=== PATIENT | female | born 1995 | race American Indian/Alaskan Native ===

== ENCOUNTER 2020-11-18 09:33 | Emergency (ER) | payer MEDICAID ==
[2020-11-18 09:52] VITALS: BP 149/80
--- NOTE | 2020-11-18 10:13 | Emergency Department Report ---
- General Chief complaint: Skin/Abscess/Foreign Body Stated complaint: FB STUCK IN RT EAR Time Seen by Provider: 11/18/20 10:06 Source: patient Mode of arrival: Ambulatory Limitations: No Limitations - History of Present Illness Initial comments: pt is a 25 yo female who presents to the ED with c/o the cotton tip from the qtip being present in the right ear canal since yesterday. she states she was using a qtip and when she took it out of the ear she did not see the end of the cotton tip. she states that she is just worried it is still inside the canal. she denies any significant ear pain, drainage, fever, hearing changes. no pmhx. no allergies to meds. LNMP february, pt is currently and due in november. Abscess Boil HPI - HPI Chief Complaint: Skin/Abscess/Foreign Body Stated Complaint: FB STUCK IN RT EAR Time Seen by Provider: 11/18/20 10:06 ED Review of Systems ROS: Stated complaint: FB STUCK IN RT EAR Other details as noted in HPI Comment: All other systems reviewed and negative ED Past Medical Hx - Past Medical History Previous Medical History?: No - Surgical History Past Surgical History?: No - Social History Smoking Status: Never Smoker Substance Use Type: None ED Physical Exam - General Limitations: No Limitations General appearance: alert, in no apparent distress - Head Head exam: Present: atraumatic, normocephalic - Eye Eye exam: Present: normal appearance - ENT ENT exam: Present: mucous membranes moist, TM's normal bilaterally, normal external ear exam - Respiratory Respiratory exam: Absent: respiratory distress, accessory muscle use - Neurological Exam Neurological exam: Present: alert, oriented X3 - Psychiatric Psychiatric exam: Present: normal affect, normal mood - Skin Skin exam: Present: warm, dry, intact ED Course Vital Signs 11/18/20 09:39 Temperature 97.8 F Pulse Rate 96 H Respiratory 18 Rate Blood Pressure 149/80 O2 Sat by Pulse 95 Oximetry ED Medical Decision Making - Medical Decision Making pt is a 25 yo female who presents to the ED with c/o the cotton tip from the qtip being present in the right ear canal since yesterday. she states she was using a qtip and when she took it out of the ear she did not see the end of the cotton tip. she states that she is just worried it is still inside the canal. she denies any significant ear pain, drainage, fever, hearing changes. no pmhx. no allergies to meds. LNMP february, pt is currently and due in november. vss. on exam: TMs and canals are normal bilaterally, no foreign body, no trauma, no bleeding, no drainage, no cerumen impaction. no foreign body on exam. advised pt please follow up with your primary care doctor or mash tub cooker. do not use qtips in the ears. if you need to clean the ears use an ear cleaning kit over the counter such as debrox. return to the emergency room for any new or worsening symptoms. Critical care attestation.: If time is entered above; I have spent that time in minutes in the direct care of this critically ill patient, excluding procedure time. ED Disposition Clinical Impression: Ear ache Disposition: - TO HOME OR SELFCARE Is pt being admited?: No Does the pt Need Aspirin: No Condition: Stable Additional Instructions: please follow up with your primary care doctor or mash tub cooker. do not use qtips in the ears. if you need to clean the ears use an ear cleaning kit over the counter such as debrox. return to the emergency room for any new or worsening symptoms. Referrals: your, primary care doctor [Other] - 2-3 Days Time of Disposition: 10:12 Print Language: BHUTANESE
== END 2020-11-18 10:35 | disposition home or self-care (01) ==
LOC: ED 09:33
DX: H92.01 Otalgia, right ear (principal)
CPT/HCPCS: 99281

== ENCOUNTER 2021-05-11 06:54 | Emergency (ER) | payer MEDICAID | END 2021-05-11 06:59 | disposition home or self-care (01) | LOC: ED 06:54 | DX: R10.2 Pelvic and perineal pain (principal); Z53.21 Procedure and treatment not carried out due to patient leaving prior to being seen by health care provider ==